=== PATIENT | male | born 1990 | race Caucasian/White ===

== ENCOUNTER 2020-03-04 20:42 | Emergency (ER) | payer OTHER ==
[~2020-03-04] VITALS: Ht 180.3 cm; Wt 104.3 kg
[2020-03-04 22:31] VITALS: BP 127/76
== END 2020-03-04 22:35 | disposition home or self-care (01) ==
LOC: M ED 20:42
DX: J06.9 Acute upper respiratory infection, unspecified (principal); R51.9 Headache, unspecified; R20.0 Anesthesia of skin
CPT/HCPCS: 99283; U0003

== ENCOUNTER → 2020-05-29 | Outpatient (REF) | payer OTHER | LOC: M LAB REF 14:08 | PROVIDERS: ATTEND Dermatology | DX: D17.21 Benign lipomatous neoplasm of skin and subcutaneous tissue of right arm (principal) ==